=== PATIENT | male | born 1995 | race Caucasian/White ===

== ENCOUNTER 2017-06-08 20:29 | Emergency (ER) | payer SELFPAY ==
[~2017-06-08] VITALS: Ht 180.3 cm; Wt 74.4 kg
--- NOTE | 2017-06-08 21:41 | ED General ---
General Chief Complaint: Laceration Stated Complaint: RT ARM LACERATIONS Nursing Triage Note: PT REPORTS HIS R HAND WENT THROUGH A GLASS TOP TABLE AND HAS LAC TO R WRIST. Nursing Sepsis Screen: No Definite Risk Source of Information: Patient Exam Limitations: No Limitations History of Present Illness Time Seen by Provider: 21:41 Allergies and Home Medications Allergies Coded Allergies: No Known Drug Allergies (Unverified , 02/01/13) Home Medications No Active Prescriptions or Reported Meds Past Iojmrod-Vmfdhy-Ecckpz Hx Patient Social History Alcohol Use: Denies Use Recreational Drug Use: Yes Drug of Choice: MARIJUANA Smoking Status: Current Everyday Smoker Type Used: Cigarettes Recent Foreign Travel: No Contact w/Someone Who Travel: No Recent Infectious Disease Expo: No Immunizations Up To Date Tetanus Booster (TDap): Less than 5yrs Date of Influenza Vaccine: Sep 15, 2012 Surgeries HX Surgeries: Yes (TESTICULAR HERNIA) Respiratory Hx Respiratory Disorders: No Cardiovascular Hx Cardiac Disorders: No Neurological Hx Neurological Disorders: No Reproductive System Hx Reproductive Disorders: No Musculoskeletal Hx Musculoskeletal Disorders: Yes (SPINAL STENOSIS) Physical Exam Vital Signs Vital Sign - Last 12Hours 06/08/17 20:47 Temp 98.5 Pulse 78 Resp 18 B/P (MAP) 113/67 Pulse Ox 100 O2 Delivery Room Air Capillary Refill : Less Than 3 Seconds Progress/Results/Core Measures Results/Orders My Orders Orders - ROBER NESS Lidocaine/Epi 1% 1:100,000 (Xylocaine /E (06/08/17 21:43) Hydrocodone/Apap 5/325 Tablet (Lortab 5 (06/08/17 21:43) Lidocaine 1% Injection (Xylocaine 1% Inj (06/08/17 21:44) Vital Signs/I&O Vital Sign - Last 12Hours 06/08/17 20:47 Temp 98.5 Pulse 78 Resp 18 B/P (MAP) 113/67 Pulse Ox 100 O2 Delivery Room Air Blood Pressure Mean: 82 Departure Impression Impression: Primary Impression: Laceration of forearm, right Qualified Codes: S51.811A - Laceration without foreign body of right forearm, initial encounter Disposition: 01 HOME, SELF-CARE Condition: Improved Departure-Patient Inst. Decision time for Depature: 22:30 Referrals: NO,LOCAL PHYSICIAN (PCP/Family) Primary Care Physician Patient Instructions: Laceration Repair With Stitches (DC) Add. Discharge Instructions: All discharge instructions reviewed with patient and/or family. Voiced understanding. Tylenol extra strength over the counter as directed for pain. Motrin 800 mg by mouth every 8 hours as needed for pain. Ice pack for 20 minute intervals as needed for pain. Elevate the right forearm on pillows. Tomorrow morning remove the bandage, shower with antibacterial soap, pat dry, apply triple embark ointment twice daily for 3 days and cover with a bandage. Follow-up with your family practitioner if needed. Return to the emergency department in 7-10 days for suture removal. Return to the emergency department immediately for worsened pain, redness, drainage, fever, or any other concerns. Scripts No Active Prescriptions or Reported Meds Work/School Note: Local Medical Staff Listing ROBER NESS Jun 08, 2017 21:41
[2017-06-08] MEDS ORDERED: HYDROcodone/APAP 5 MG/325 MG (LORTAB) TAB PO STA (21:43)
[2017-06-08] MEDS ORDERED: LIDOCAINE/EPI 1%-1:100,000 (XYLOCAINE) 20ML INJ STA (21:43)
[2017-06-08] MEDS ORDERED: LIDOCAINE 1% INJ 20 ML (XYLOCAINE) VIAL INJ STA (21:44)
[2017-06-08 23:17] VITALS: BP 0/0
== END 2017-06-08 23:17 | disposition home or self-care (01) ==
LOC: EDUNIT# 20:29 → ER 20:32
DX: S51.811A Laceration without foreign body of right forearm, initial encounter (principal); M48.00 Spinal stenosis, site unspecified; F17.210 Nicotine dependence, cigarettes, uncomplicated; F12.90 Cannabis use, unspecified, uncomplicated; W25.XXXA Contact with sharp glass, initial encounter

== ENCOUNTER → 2017-11-26 | Emergency (ER) | payer SELFPAY ==
[~2017-11-26] VITALS: Ht 180.3 cm; Wt 74.8 kg
--- OUTSIDE RECORDS SUMMARY | 2017-11-26 13:49 | XMS REPORT | Continuity of Care Document ---
Author Author [facility] of [facility] of [facility] Address Unknown Phone Unavailable Allergies Active Description Code Type Severity Reaction Onset Reported/Identified Relationship to Patient Clinical Status Yes No Known Drug Allergies [id number] Drug Allergy Unknown N/A 02/01/2013 Medications There is no data. Problems Date Dx Coded Attending Type Code Diagnosis Diagnosed By 09/09/2010 ELIZABETH CANTRELL APRN 564.00 CONSTIPATION 09/09/2010 ELIZABETH CANTRELL APRN 724.5 BACKACHE UNSPECIFIED 02/01/2013 ELIZABETH CANTRELL APRN 550.90 UNILATERAL OR UNSPECIFIED INGUINAL HERNIA WITHOUT OBSTRUCTION OR GANGRENE 02/01/2013 ELIZABETH CANTRELL APRN 608.9 UNSPECIFIED DISORDER OF MALE GENITAL ORGANS 02/01/2013 Ot 604.90 ORCHITIS/ EPIDIDYMIT NOS 02/01/2013 Ot 608.9 MALE GENITAL DIS NOS Procedures Code [place] [address] UA LONG DIP 02/01/2013 00747 GC/CHLAM URINE (STATE) 02/03/2013 Results There is no data. Encounters ACCT No. Visit Date/Time Discharge Status Pt. Type Provider Facility Loc./Unit Complaint [id number] 02/01/2013 10:39:00 02/01/2013 23:59:59 CLS Outpatient ELIZABETH CANTRELL APRN [id number] 06/08/2017 20:32:00 06/08/2017 23:17:00 DIS Emergency ROBER OLVERA Via [facility] ER RT ARM LACERATION [id number] 11/22/2013 17:54:00 11/22/2013 23:59:59 CLS Outpatient [id number] 02/01/2013 12:11:00 Document Registration
--- OUTSIDE RECORDS SUMMARY | 2017-11-26 13:49 | XMS REPORT ---
Author Author LORENZO JASMINE Organization [employer] Address Unknown Phone Unavailable Care Team Providers Care Compounding Technician Name Role Phone LORENZO JASMINE CP Unavailable Allergies No Known Allergies Problems Problem Type Condition ICD-9 Code Onset Dates Condition Status Problem Inguinal hernia without mention of obstruction or gangrene, unilateral or unspecified, (not specified as recurrent) 550.90 Active Assessment Dental examination V72.2 Active Problem Unspecified disorder of male genital organs 608.9 Active Medications No Known Medications Procedures Procedure Coding System Code Date INTRAORL-PERIAPICAL 1 FILM 48897 CPT-4 D0220 Jul 17, 2015 INTRAORL-PERIAPICAL EA ADD FILM CPT-4 D0230 Jul 17, 2015 LTD ORAL EVALUATION - PROBLEM FOCUS CPT-4 D0140 Jul 17, 2015 EXTRAC ERUPTED TOOTH/EXPOSED ROOT CPT-4 D7140 Jul 17, 2015 Results No Known Results Summary Purpose [employer] Submission
--- OUTSIDE RECORDS SUMMARY | 2017-11-26 13:49 | XMS REPORT | Clinical Summary ---
Author Author [facility] Organization [facility] Address Unknown Phone Unavailable Care Team Providers Care Recreation Therapy Teacher Name Role Phone PCP Unavailable Source Comments Some departments are not documenting in the electronic medical record. If you do not see the information that you expected, contact Release of Information in the Health Information Management department at [phone] for further assistance in locating additional records.[facility] Allergies Not on File Current Medications Not on file Active Problems Not on file Social History Tobacco Use Types Packs/Day Years Used Date Never Assessed Sex Assigned at Date Recorded Not on file Last Filed Vital Signs Not on file Plan of Treatment Health Maintenance Due Date Last Done Comments PHYSICAL (COMPREHENSIVE) 2002 EXAM PERTUSSIS VACCINE 2006 TETANUS VACCINE 02/07/2012 INFLUENZA VACCINE 06/15/2017 HPV VACCINES Aged Out No longer eligible based on patient's age to complete this topic Results Not on filefrom Last 3 Months
[2017-11-26 14:18] VITALS: BP 150/82
== END | disposition left against medical advice (07) ==
LOC: EDUNIT# 13:44 → ER 13:46
DX: K08.89 Other specified disorders of teeth and supporting structures (principal)
CPT/HCPCS: 99281

== ENCOUNTER 2017-12-05 18:16 | Emergency (ER) | payer SELFPAY ==
[~2017-12-05] VITALS: Ht 180.3 cm; Wt 74.8 kg
--- NOTE | 2017-12-05 18:28 | ED Cough/URI ---
General Stated Complaint: COUGH/FEVER Source: patient Exam Limitations: no limitations History of Present Illness Date Seen by Provider: Dec 05, 2017 Time Seen by Provider: 18:28 Initial Comments To ER, advised girlfriend with a cough present for 2 weeks but he has been unable to quit coughing constantly for the past hour. No fevers. No chills no sore throat. Girlfriend tested positive for influenza last week she states. Timing/Duration: constant Severity/Quality: dry cough Associated Symptoms: cough Allergies and Home Medications Allergies Coded Allergies: No Known Drug Allergies (Unverified , 02/01/13) Home Medications No Active Prescriptions or Reported Meds Constitutional: see HPI EENTM: see HPI Respiratory: see HPI, cough Cardiovascular: no symptoms reported Genitourinary: no symptoms reported Musculoskeletal: no symptoms reported Skin: no symptoms reported Psychiatric/Neurological: No Symptoms Reported Hematologic/Lymphatic: No Symptoms Reported Past Xtgsukh-Fsuwnt-Bavoyv Hx Patient Social History Drug of Choice: MARIJUANA Type Used: Cigarettes 2nd Hand Smoke Exposure: Yes Recent Foreign Travel: No Contact w/Someone Who Travel: No Recent Hopitalizations: No Immunizations Up To Date Tetanus Booster (TDap): Less than 5yrs Date of Influenza Vaccine: Sep 15, 2012 Surgeries History of Surgeries: Yes (TESTICULAR HERNIA) Respiratory History of Respiratory Disorde: No Cardiovascular History of Cardiac Disorders: No Neurological History of Neurological Disord: No Reproductive System Hx Reproductive Disorders: No Genitourinary History of Genitourinary Disor: No Gastrointestinal History of Gastrointestinal Di: No Musculoskeletal History of Musculoskeletal Dis: Yes (SPINAL STENOSIS) Musculoskeletal Disorders: Chronic Back Pain Endocrine History of Endocrine Disorders: No HEENT History of HEENT Disorders: No Cancer History of Cancer: No Psychosocial History of Psychiatric Problem: No Integumentary History of Skin or Integumenta: No Blood Transfusions History of Blood Disorders: No Family Medical History Significant Family History: No Pertinent Family Hx Physical Exam Vital Signs Vital Sign - Last 12Hours 12/05/17 18:21 Temp 98.7 Pulse 107 Resp 18 B/P (MAP) 136/72 (93) Capillary Refill : General Appearance: WD/WN, no apparent distress Eyes: Bilateral Eye Normal Inspection, Bilateral Eye PERRL, Bilateral Eye EOMI HEENT: PERRL/EOMI, normal ENT inspection Neck: non-tender, full range of motion Respiratory: normal breath sounds, no respiratory distress, no accessory muscle use Cardiovascular: regular rate, rhythm, no murmur Gastrointestinal: normal bowel sounds, non tender, soft Neurologic/Psychiatric: alert, normal mood/affect, oriented x 3 Skin: normal color, warm/dry Progress/Results/Core Measures Suspected Sepsis SIRS Temperature: Pulse: Respiratory Rate: Blood Pressure / Mean: Results/Orders Micro Results Microbiology 12/05/17 Influenza Types A,B Antigen (TY) - Final, Complete My Orders Orders - ANDRE YIP APRN Chest Pa/Lat (2 View) (12/05/17 18:26) Influenza A And B Antigens (12/05/17 18:26) Promethazine/ Codeine Syrup (Phenergan W (12/05/17 18:30) Medications Given in ED Current Medications Medications Dose Ordered Sig/Cleo Route Start Time Stop Time Status Last Admin Dose Admin Promethazine HCl/ Codeine 7.5 ml ONCE ONCE PO 12/05/17 18:30 12/05/17 18:31 DC 12/05/17 18:37 7.5 ML Vital Signs/I&O Vital Sign - Last 12Hours 12/05/17 18:21 Temp 98.7 Pulse 107 Resp 18 B/P (MAP) 136/72 (93) Capillary Refill : Departure Impression Impression: Primary Impression: Bronchitis Disposition: 01 HOME, SELF-CARE Condition: Stable Departure-Patient Inst. Decision time for Depature: 18:55 Referrals: NO,LOCAL PHYSICIAN (PCP/Family) Primary Care Physician Patient Instructions: Acute Bronchitis, Adult (DC) Add. Discharge Instructions: 1. Return to ER for any concerns 2. Cough medication and antibiotics as directed 3. Scripts Promethazine HCl/Codeine (Prometh-Codein 6.25-10 mg/5 ml) 5 Ml Syrup 5 ML PO Q6H Y for CONGESTION, #120 ML Prov: ANDRE YIP APRN 12/05/17 Azithromycin (Azithromycin) 250 Mg Tablet 250 MG PO UD, #6 TAB TAKE 2 TABLETS ON DAY ONE THEN TAKE 1 TABLET DAILY FOR FOUR MORE DAYS Prov: ANDRE YIP APRN 12/05/17 Work/School Note: Work Release Form Date Seen in the Emergency Department: Dec 05, 2017 Return to Work: Dec 08, 2017 ANDRE YIP APRN Dec 05, 2017 18:28
[2017-12-05] MEDS ORDERED: PROMETHAZINE/ CODEINE SYRUP 5 ML UDC PO ONE (18:30)
--- NOTE | 2017-12-05 18:48 | Diagnostic Imaging Report ---
CHEST PA/LAT (2 VIEW) Indication: Cough and chest tightness Comparison: None available. Findings: No focal pneumonic consolidation, pleural effusion or pneumothorax. Normal heart size and pulmonary vasculature. Impression: No acute cardiopulmonary process. Dictated by: Dictated on workstation # [id number]
[2017-12-05] MEDS ORDERED: AZIT250T12 PO (18:56)
[2017-12-05] MEDS ORDERED: PROM5SYR PO (18:56)
[2017-12-05 19:04] VITALS: BP 136/72
== END 2017-12-05 19:04 | disposition home or self-care (01) ==
LOC: EDUNIT# 18:16 → ER 18:17
DX: J40 Bronchitis, not specified as acute or chronic (principal); F12.10 Cannabis abuse, uncomplicated; Z77.22 Contact with and (suspected) exposure to environmental tobacco smoke (acute) (chronic)
CPT/HCPCS: 71046; 87804; 99283

== ENCOUNTER 2018-06-18 01:32 | Emergency (ER) | payer SELFPAY ==
[~2018-06-18] VITALS: Ht 177.8 cm; Wt 73.5 kg
[~2018-06-18 01:32] MED LIST: AZIT250T12 PO; PROM5SYR PO
[2018-06-18] MEDS ORDERED: TRIM/SULFAMETH 160/800 (SEPTRA DS) TAB PO ONE (01:45)
[2018-06-18] MEDS ORDERED: TETANUS,DIPTH,PERTUSS P/F (BOOSTRIX) 0.5 ML VIAL IM ONE (01:45)
--- NOTE | 2018-06-18 01:58 | ED Integumentary General ---
General Stated Complaint: RT HAND HURTS-POSS INFECTION Source: patient Exam Limitations: no limitations History of Present Illness Date Seen by Provider: Jun 18, 2018 Time Seen by Provider: 01:38 Initial Comments Patient presents to ER by private conveyance with chief complaint is having some swelling and pain in his first digit of the right hand. One or 2 days ago he said he was messing with some copper wiring a burn been and he cut himself on that thumb and since then his had a lot of pain and swelling progressively worse. He's had no fevers chills nausea vomiting or weakness. He has feeling in his hand and fingers. His range of motion is only mildly limited secondary to pain. He's noticed some greenish yellow discharge from the wound. Allergies and Home Medications Allergies Coded Allergies: No Known Drug Allergies (Unverified , 02/01/13) Home Medications Azithromycin 250 Mg Tablet, 250 MG PO UD TAKE 2 TABLETS ON DAY ONE THEN TAKE 1 TABLET DAILY FOR FOUR MORE DAYS Prescribed by: ANDRE YIP on 12/05/171855 Promethazine HCl/Codeine 5 Ml Syrup, 5 ML PO Q6H PRN for CONGESTION Prescribed by: ANDRE YIP on 12/05/171855 Sulfamethoxazole/Trimethoprim 1 Each Tablet, 1 EACH PO BID Prescribed by: JAY ADDISON on 06/18/18 0159 Patient Home Medication List Home Medication List Reviewed: Yes Constitutional: No chills, No diaphoresis, No fever EENTM: No ear discharge, No ear pain Respiratory: No cough, No short of breath Cardiovascular: No chest pain, No edema Gastrointestinal: No abdominal pain, No constipation, No diarrhea Genitourinary: No dysuria Musculoskeletal: No back pain, No joint pain Skin: see HPI Past Gqomygw-Pretix-Ukaylh Hx Patient Social History Alcohol Use: Denies Use Recreational Drug Use: Yes Drug of Choice: MARIJUANA Smoking Status: Current Everyday Smoker Type Used: Cigarettes 2nd Hand Smoke Exposure: No Recent Foreign Travel: No Contact w/Someone Who Travel: No Recent Hopitalizations: No Immunizations Up To Date Tetanus Booster (TDap): Less than 5yrs Date of Influenza Vaccine: Sep 15, 2012 Past Medical History Surgeries: Yes (TESTICULAR HERNIA) Respiratory: No Cardiac: No Neurological: No Reproductive Disorders: No Genitourinary: No Gastrointestinal: No Musculoskeletal: Yes (SPINAL STENOSIS) Chronic Back Pain Endocrine: No HEENT: No Cancer: No Psychosocial: No Integumentary: No Blood Disorders: No Family Medical History No Pertinent Family Hx Physical Exam Vital Signs Vital Signs - First Documented 06/18/18 01:41 Temp 97.7 Pulse 93 Resp 19 B/P (MAP) 125/90 (102) Pulse Ox 99 O2 Delivery Room Air Capillary Refill : General Appearance: no apparent distress, other (disheveled) HEENT: PERRL/EOMI, pharynx normal Cardiovascular: normal peripheral pulses, regular rate, rhythm Respiratory: no respiratory distress, no accessory muscle use Neurologic/Psychiatric: alert, normal mood/affect, oriented x 3 Skin: other (taut, tender, erythematous pad of the first digit right hand with area of fluctuance under the approximated, dry 1 cm laceration) Procedures/Interventions I&D : Site: right thumb pad not involving nail Blade Size: 11 I & D Procedure: betadine prep (chlorhexidine soap water and alcohol) Progress Right thumb was prepared with 6 cc lidocaine in a digital block after cleaning the hand with soap and water and then alcohol and chlorhexidine. When the wound was ascertained to be numb we use an 11 blade to make a cross mane incision utilizing the previous wound and expressed about 2-3 cc of thick mucopurulent discharge with foul odor the wound was then cleaned thoroughly with chlorhexidine soap water and a light gauze dressing was placed.. Progress/Results/Core Measures Results/Orders My Orders Orders - AJY ADDISON Sulfamethoxazole/Trimet Ds Tab (Bactrim (06/18/18 01:45) Dipht,Pertuss(Acell),Tet Adult (Boostrix (06/18/18 01:45) Lidocaine 1% Inj 20 Ml (Xylocaine 1% Inj (06/18/18 02:00) Acetaminophen Tablet (Tylenol Tablet) (06/18/18 02:30) Medications Given in ED Current Medications Medications Dose Ordered Sig/Cleo Route Start Time Stop Time Status Last Admin Dose Admin Diphtheria/ Tetanus/Acell Pertussis 0.5 ml ONCE ONCE IM 06/18/18 01:45 06/18/18 01:46 DC 06/18/18 02:01 0.5 ML Lidocaine HCl 20 ml ONCE ONCE INJ 06/18/18 02:00 06/18/18 02:01 DC 06/18/18 02:02 20 ML Trimethoprim/ Sulfamethoxazole 1 ea ONCE ONCE PO 06/18/18 01:45 06/18/18 01:46 DC 06/18/18 01:57 1 EA Vital Signs/I&O 06/18/18 01:41 Temp 97.7 Pulse 93 Resp 19 B/P (MAP) 125/90 (102) Pulse Ox 99 O2 Delivery Room Air Progress Progress Note : Time: 02:27 Progress Note We gave him a dose of Bactrim tonight we'll have him follow-up with his doctor Wednesday or Wednesday. Tetanus shot was given. Gave him some Tylenol for his pain in addition to Motrin he's been taking. Departure Impression Primary Impression: Abscess of thumb, right Disposition: HOME, SELF-CARE Condition: Stable Departure-Patient Inst. Decision time for Depature: 02:28 Referrals: EVERTON FREY DO (PCP/Family) Primary Care Physician Patient Instructions: ABSCESS Add. Discharge Instructions: Keep the wound clean with regular soap and water. Allowed to drain over the next couple days and do not submerse it and water for 3 days. Take the antibiotics 1 tablet twice a day by mouth. Follow-up with your primary care provider in the next 2-3 days for reevaluation of the thumb. Return to the ER to begin to have fevers or chills or nausea and vomiting. Keep the finger clean with soap and water several times a day and you can wear a light gauze dressing to keep dirt out. If you have pain then use ibuprofen 400 mg every 8 hours and/ or Tylenol 1000 mg every 8 hours. Scripts Sulfamethoxazole/Trimethoprim (Bactrim Ds Tablet) 1 Each Tablet 1 EACH PO BID for 5 Days, #10 TAB 0 Refills Prov: JAY ADDISON 06/18/18 Copy Copies To 1: EVERTON FREY TITUS J Jun 18, 2018 01:58
[2018-06-18] MEDS ORDERED: SULF1TAB35 PO (01:59)
[2018-06-18] MEDS ORDERED: LIDOCAINE 1% INJ 20 ML 20 ML VIAL INJ ONE (02:00)
[2018-06-18] MEDS ORDERED: ACETAMINOPHEN 500 MG TAB (TYLENOL) PO ONE (02:30)
[2018-06-18 02:35] VITALS: BP 125/90
--- OUTSIDE RECORDS SUMMARY | 2018-06-18 12:06 | XMS REPORT ---
Author Author JESSICA DYLAN [facility] Address Unknown Care Team Providers Care Plating Equipment Tender Name Role Phone DYLAN LOPEZ Unavailable PROBLEMS Type Condition ICD9-CM Code [id number] Code Onset Dates Condition Status SNOMED Code Problem Unspecified disorder of male genital organs 608.9 Active 50940821 Problem Inguinal hernia without mention of obstruction or gangrene, unilateral or unspecified, (not specified as recurrent) 550.90 Active [id number] ALLERGIES No Known Allergies ENCOUNTERS Encounter Location Date Diagnosis [facility] [id number] [place] [id number] Jan, Dental examination Z01.20 [facility] [id number] [place] [id number] Jul, Dental examination V72.2 [facility] [address] [id number] Feb, [facility] [id number] [place] [id number] Jan, [facility] [id number] [place], [place] [phone] Aug, [facility] [address] [phone] Aug, IMMUNIZATIONS No Known Immunizations SOCIAL HISTORY Never Assessed REASON FOR VISIT WALK IN PAIN PLAN OF CARE Activity Details Follow Up prn Reason:EXT # 11 VITAL SIGNS Height 68 in 2018-01-20 Blood pressure systolic 98 mmHg 2018-01-20 Blood pressure diastolic 64 mmHg 2018-01-20 MEDICATIONS Medication Instructions Dosage Frequency Start Date End Date Duration Status Amoxicillin 500 MG Orally every 8 hrs 1 capsule 8h 7 days Active RESULTS No Results PROCEDURES Procedure Date Ordered Result Body Site LTD ORAL EVALUATION - PROBLEM FOCUS January 20, 2018 INTRAORL-PERIAPICAL 1 FILM 76587 January 20, 2018 INSTRUCTIONS MEDICATIONS ADMINISTERED No Known Medications MEDICAL (GENERAL) HISTORY Type Description Date Medical History Back Trouble
--- OUTSIDE RECORDS SUMMARY | 2018-06-18 12:06 | XMS REPORT | Clinical Summary ---
Author Author [facility] Organization [facility] Address Unknown Phone Unavailable Care Team Providers Care Apprentice Plant Attendant Name Role Phone KiraJohnny santos PCP Source Comments Some departments are not documenting in the electronic medical record. If you do not see the information that you expected, contact Release of Information in the Health Information Management department at [phone] for further assistance in locating additional records.[facility] Allergies Not on File Current Medications Not on file Active Problems Not on file Social History Tobacco Use Types Packs/Day Years Used Date Never Assessed Sex Assigned at Date Recorded Not on file Last Filed Vital Signs Not on file Plan of Treatment Health Maintenance Due Date Last Done Comments PHYSICAL (COMPREHENSIVE) 2002 EXAM PERTUSSIS VACCINE 2006 HIV SCREENING 2010 TETANUS VACCINE 02/07/2012 INFLUENZA VACCINE 08/15/2018 Results Not on filefrom Last 3 Months
--- OUTSIDE RECORDS SUMMARY | 2018-06-18 12:06 | XMS REPORT | Continuity of Care Document ---
Author Author [facility] of [facility] Address Unknown Phone Unavailable Allergies Active Description Code Type Severity Reaction Onset Reported/Identified Relationship to Patient Clinical Status Yes No Known Drug Allergies [id number] Drug Allergy Unknown N/A 02/01/2013 Medications There [...] 02/01/2013 Ot 608.9 MALE GENITAL DIS NOS 06/08/2017 ROBER OLVERA Ot F12.90 CANNABIS USE, UNSPECIFIED, UNCOMPLICATED 06/08/2017 ROBER OLVERA Ot F17.210 NICOTINE DEPENDENCE, CIGARETTES, UNCOMPL 06/08/2017 ROBER OLVERA Ot M48.00 SPINAL STENOSIS, SITE UNSPECIFIED 06/08/2017 ROBER OLVERA Ot S51.811A LACERATION W/O FOREIGN BODY OF RIGHT FOR 06/08/2017 ROBER OLVERA Ot S61.411A LACERATION WITHOUT FOREIGN BODY OF RIGHT 06/08/2017 ROBER OLVERA Ot W25.XXXA CONTACT WITH SHARP GLASS, INITIAL ENCOUN 11/30/2017 ROBER OLVERA Ot K08.89 OTHER SPECIFIED DISORDERS OF TEETH AND S 12/01/2017 ROBER OLVERA Ot K08.89 OTHER SPECIFIED DISORDERS OF TEETH AND S 12/05/2017 ROBER OLVERA Ot K08.89 OTHER SPECIFIED DISORDERS OF TEETH AND S 12/05/2017 ANDRE YIP APRN Ot F12.10 CANNABIS ABUSE, UNCOMPLICATED 12/05/2017 ANDRE YIP APRN Ot J40 BRONCHITIS, NOT SPECIFIED ACUTE OR CH 12/05/2017 ANDRE YIP APRN Ot R05 COUGH 12/05/2017 ANDRE YIP APRN Ot Z77.22 CNTCT W AND EXPSR TO ENVIRON TOBACCO SMO 12/07/2017 ANDRE YIP APRN Ot F12.10 CANNABIS ABUSE, UNCOMPLICATED 12/07/2017 ANDRE YIP APRN Ot J40 BRONCHITIS, NOT SPECIFIED ACUTE OR CH 12/07/2017 ANDRE YIP APRN Ot R05 COUGH 12/07/2017 ANDRE YIP APRN Ot Z77.22 CNTCT W AND EXPSR TO ENVIRON TOBACCO SMO 12/11/2017 ANDRE YIP APRN Ot F12.10 CANNABIS ABUSE, UNCOMPLICATED 12/11/2017 ANDRE YIP APRN Ot J40 BRONCHITIS, NOT SPECIFIED ACUTE OR CH 12/11/2017 ANDRE YIP APRN Ot R05 COUGH 12/11/2017 ANDRE YIP APRN Ot Z77.22 CNTCT W AND EXPSR TO ENVIRON TOBACCO SMO 01/11/2018 ROBER OLVERA Ot K08.89 OTHER SPECIFIED DISORDERS OF TEETH AND S Procedures Code [place] [address] UA LONG DIP 02/01/2013 29038 GC/CHLAM URINE (STATE) 02/03/2013 Results Test Result Range Influenza virus A and B antigen detection - 12/05/17 18:27 FLU RESULT NEGATIVE FOR INFLUENZA A AND B ANTIGENS BY IA NRG Encounters ACCT No. Visit Date/Time Discharge Status Pt. Type Provider Facility Loc./Unit Complaint [id number] 02/01/2013 10:39:00 02/01/2013 23:59:59 CLS Outpatient ELIZABETH CANTRELL APRN [id number] 01/20/2018 09:30:00 01/20/2018 23:59:59 CLS Outpatient JAVIER DOAN LAC [facility] [id number] 12/05/2017 18:17:00 12/05/2017 19:04:00 DIS Emergency ANDRE YIP APRN Via [facility] ER COUGH/FEVER [id number] 11/26/2017 13:46:00 11/26/2017 18:22:00 DIS Emergency ROBER OLVERA Via [facility] ER TOOTHACHE [id number] 06/08/2017 20:32:00 06/08/2017 23:17:00 DIS Emergency THI WHEELER, ROBER Larose Via [facility] ER RT ARM LACERATION [id number] 11/22/2013 17:54:00 11/22/2013 23:59:59 CLS Outpatient [id number] 02/01/2013 12:11:00 Document Registration
== END 2018-06-18 02:35 | disposition home or self-care (01) ==
LOC: EDUNIT# 01:32 → ER 01:36
DX: L03.011 Cellulitis of right finger (principal); F12.10 Cannabis abuse, uncomplicated; F17.210 Nicotine dependence, cigarettes, uncomplicated; Z87.448 Personal history of other diseases of urinary system; Z23 Encounter for immunization
CPT/HCPCS: 90471; 90715

== ENCOUNTER 2019-05-21 15:19 | Emergency (ER) | payer SELFPAY ==
[~2019-05-21] VITALS: Ht 177.8 cm; Wt 72.6 kg
[~2019-05-21 15:19] MED LIST changes: +SULF1TAB35 PO
--- NOTE | 2019-05-21 16:19 | ED Integumentary General ---
General Chief Complaint: Upper Extremity Stated Complaint: RT HAND PAIN Nursing Triage Note: Right hand pain. Pt cut hand on barbed wire last week. Pt tried to ruben the wound himself last night. Pain up to the elbow. Source: patient Exam Limitations: no limitations History of Present Illness Date Seen by Provider: May 21, 2019 Time Seen by Provider: 16:04 Initial Comments 24-year-old male patient presents to the emergency department with complaints of right thumb infection. Patient reports cutting his hand on bar wire last week. Reports progressively worsening redness, swelling, and pain. He attempted to ruben the right thumb with a razor blade at home. He denies drainage. Timing/Duration: week, getting worse Location: hands (rt hand) Possible Cause: other (punture from barbed wire) Modifying Factors: worse with other (worse with palpation or movement) Allergies and Home Medications Allergies Coded Allergies: No Known Drug Allergies (Unverified , 02/01/13) Home Medications Azithromycin 250 Mg Tablet, 250 MG PO UD TAKE 2 TABLETS ON DAY ONE THEN TAKE 1 TABLET DAILY FOR FOUR MORE DAYS Prescribed by: ANDRE YIP on 12/05/17 185 Promethazine HCl/Codeine 5 Ml Syrup, 5 ML PO Q6H PRN for CONGESTION Prescribed by: ANDRE YIP on 12/05/17 185 Sulfamethoxazole/Trimethoprim 1 Each Tablet, 1 EACH PO BID Prescribed by: JAY ADDISON on 06/18/18 0159 Patient Home Medication List Home Medication List Reviewed: Yes Review of Systems Review of Systems Constitutional: No chills, No fever, No malaise Respiratory: no symptoms reported Cardiovascular: no symptoms reported Musculoskeletal: see HPI Skin: see HPI Psychiatric/Neurological: No Symptoms Reported All Other Systems Reviewed Negative Unless Noted: Yes (Negative excepted noted.) Past Euhvwrs-Lumfyb-Vddnww Hx Past Med/Social Hx: Reviewed Nursing Past Med/Soc Hx Patient Social History Alcohol Use: Occasionally Uses Recreational Drug Use: No Drug of Choice: MARIJUANA Smoking Status: Current Everyday Smoker Type Used: Cigarettes 2nd Hand Smoke Exposure: No Recent Foreign Travel: No Contact w/Someone Who Travel: No Recent Infectious Disease Expo: No Recent Hopitalizations: No Immunizations Up To Date Tetanus Booster (TDap): Less than 5yrs (June 2018) Date of Influenza Vaccine: Sep 15, 2012 Past Medical History Surgeries: Yes ("TESTICULAR HERNIA") Respiratory: No Cardiac: No Neurological: No Reproductive Disorders: No Genitourinary: No Gastrointestinal: No Musculoskeletal: Yes (SPINAL STENOSIS) Chronic Back Pain Endocrine: No HEENT: No Cancer: No Psychosocial: No Integumentary: No Blood Disorders: No Family Medical History Reviewed Nursing Family Hx No Pertinent Family Hx Physical Exam Vital Signs Vital Signs - First Documented 05/21/19 15:43 Temp 98.5 Pulse 101 Resp 15 B/P (MAP) 124/99 (107) Pulse Ox 98 O2 Delivery Room Air Capillary Refill : Less Than 3 Seconds General Appearance: WD/WN, no apparent distress Cardiovascular: normal peripheral pulses, regular rate, rhythm, no murmur Respiratory: lungs clear, normal breath sounds, no respiratory distress, no accessory muscle use Extremities: normal capillary refill, other (erythema, swelling, and tenderness to the right thumb. pt is noted to have a erythematous streaking up the anterior forearm to the distal bicep) Neurologic/Psychiatric: no motor/sensory deficits, alert, normal mood/affect, oriented x 3 Skin: normal color, warm/dry, other (erythema, swelling, and tenderness to the right thumb. pt is noted to have a erythematous streaking up the anterior forearm to the distal bicep) Skin Problem Location: upper extremities (right thumb) Skin Problem Character: abscess, erythema, swelling, tenderness, warm Procedures/Interventions I&D : Site: right thumb Blade Size: 11 I & D Procedure: betadine prep, sterile drapes applied, sterile dressing applied, gauze wick placed Packing/Drain: Idoform 11/18 Progress approximately 3 cc's of purulent drainage expressed. wound c&s obtained. blood loss minimal. pt tolerated the procedure well. Progress/Results/Core Measures Results/Orders Lab Results Laboratory Tests Test 05/21/19 16:29 Range/Units White Blood Count 12.5 H 4.3-11.0 10^3/uL Red Blood Count 4.36 4.35-5.85 10^6/uL Hemoglobin 13.2 L 13.3-17.7 G/DL Hematocrit 38 L 40-54 % Mean Corpuscular Volume 88 80-99 FL Mean Corpuscular Hemoglobin 30 25-34 PG Mean Corpuscular Hemoglobin Concent 34 32-36 G/DL Red Cell Distribution Width 13.6 10.0-14.5 % Platelet Count 201 130-400 10^3/uL Mean Platelet Volume 10.9 H 7.4-10.4 FL Neutrophils (%) (Auto) 74 42-75 % Lymphocytes (%) (Auto) 17 12-44 % Monocytes (%) (Auto) 8 0-12 % Eosinophils (%) (Auto) 1 0-10 % Basophils (%) (Auto) 0 0-10 % Neutrophils # (Auto) 9.3 H 1.8-7.8 X 10^3 Lymphocytes # (Auto) 2.2 1.0-4.0 X 10^3 Monocytes # (Auto) 1.0 0.0-1.0 X 10^3 Eosinophils # (Auto) 0.1 0.0-0.3 10^3/uL Basophils # (Auto) 0.0 0.0-0.1 10^3/uL Sodium Level 137 135-145 MMOL/L Potassium Level 3.6 3.6-5.0 MMOL/L Chloride Level 103 98-107 MMOL/L Carbon Dioxide Level 23 21-32 MMOL/L Anion Gap 11 5-14 MMOL/L Blood Urea Nitrogen 7 7-18 MG/DL Creatinine 0.82 0.60-1.30 MG/DL Estimat Glomerular Filtration Rate > 60 BUN/Creatinine Ratio 9 Glucose Level 79 70-105 MG/DL Calcium Level 9.2 8.5-10.1 MG/DL Corrected Calcium 9.1 8.5-10.1 MG/DL Total Bilirubin 0.7 0.1-1.0 MG/DL Aspartate Amino Transf (AST/SGOT) 12 5-34 U/L Alanine Aminotransferase (ALT/SGPT) 12 0-55 U/L Alkaline Phosphatase 59 40-136 U/L Total Protein 6.8 6.4-8.2 GM/DL Albumin 4.1 3.2-4.5 GM/DL My Orders Orders - ROBER NESS Cbc With Automated Diff (05/21/19 16:14) Comprehensive Metabolic Panel (05/21/19 16:14) Ibuprofen Tablet (Motrin Tablet) (05/21/19 16:14) Ed Iv/Invasive Line Start (05/21/19 16:21) Lidocaine 1% Inj 20 Ml (Xylocaine 1% Inj (05/21/19 17:00) Wound Culture (05/21/19 16:57) Sulfamethoxazole/Trimet Ds Tab (Bactrim (05/21/19 16:57) Clindamycin 600 Mg/50 Ml Ivpb (Cleocin P (05/21/19 17:00) Medications Given in ED Current Medications Medications Dose Ordered Sig/Cleo Route Start Time Stop Time Status Last Admin Dose Admin Clindamycin Phosphate/Dextrose 50 ml @ 108 mls/hr ONCE ONCE IV 05/21/19 17:00 05/21/19 17:27 DC 05/21/19 17:35 108 MLS/HR Lidocaine HCl 20 ml ONCE ONCE INJ 05/21/19 17:00 05/21/19 17:04 DC 05/21/19 17:25 20 ML Vital Signs/I&O 05/21/19 15:43 Temp 98.5 Pulse 101 Resp 15 B/P (MAP) 124/99 (107) Pulse Ox 98 O2 Delivery Room Air Blood Pressure Mean: 107 Departure Impression Primary Impression: Abscess of thumb, right Disposition: 01 HOME, SELF-CARE Condition: Improved Departure-Patient Inst. Decision time for Depature: 18:00 Referrals: EVERTON FREY DO (PCP/Family) Primary Care Physician Patient Instructions: Abscess Incision and Drainage Add. Discharge Instructions: All discharge instructions reviewed with patient and/or family. Voiced understanding. Medications as instructed. Tylenol extra strength [id number] as directed for pain. Ibuprofen 800 mg by mouth every 8 hours as needed for pain. Elevate the right hand on pillows as much as possible. Follow-up with Dr. Frey tomorrow for recheck, call his office first thing tomorrow morning for appointment time. Return in the emergency department for worsened symptoms, fever, or any other concerns. Scripts Doxycycline Hyclate (Doxycycline Hyclate) 100 Mg Tablet 100 MG PO BID, #20 TAB 0 Refills Prov: ROBER NESS 05/21/19 Sulfamethoxazole/Trimethoprim (Bactrim Ds Tablet) 1 Each Tablet 1 EACH PO BID, #20 TAB 0 Refills Prov: ROBER NESS 05/21/19 ROBER NESS May 21, 2019 16:19
[2019-05-21] MEDS: IBUPROFEN 800 MG (MOTRIN) TAB PO STA (16:20)
[2019-05-21 16:35] LABS: BASOPHILS % (AUTO) 0 % (0-10); EOSINOPHILS # (AUTO) 0.1 10^3/uL (0.0-0.3); EOSINOPHILS % (AUTO) 1 % (0-10); HEMATOCRIT 38 % (40-54); HEMOGLOBIN 13.2 G/DL (13.3-17.7); LYMPHOCYTES # (AUTO) 2.2 X 10^3 (1.0-4.0); LYMPHOCYTES % (AUTO) 17 % (12-44); MEAN CORPUSCULAR HEMOGLOBIN 30 PG (25-34); MEAN CORPUSCULAR HGB CONC 34 G/DL (32-36); MEAN CORPUSCULAR VOLUME 88 FL (80-99); MEAN PLATELET VOLUME 10.9 FL (7.4-10.4); MONOCYTES % (AUTO) 8 % (0-12); NEUTROPHILS # (AUTO) 9.3 X 10^3 (1.8-7.8); NEUTROPHILS % (AUTO) 74 % (42-75); PLATELET COUNT 201 10^3/uL (130-400); RED CELL DISTRIBUTION WIDTH 13.6 % (10.0-14.5); WHITE BLOOD COUNT 12.5 10^3/uL (4.3-11.0)
[2019-05-21 16:55] LABS: ALANINE AMINOTRANSFERASE 12 U/L (0-55); ALBUMIN 4.1 GM/DL (3.2-4.5); ALKALINE PHOSPHATASE 59 U/L (40-136); BILIRUBIN,TOTAL 0.7 MG/DL (0.1-1.0); BUN/CREATININE RATIO 9; CALCIUM 9.2 MG/DL (8.5-10.1); CARBON DIOXIDE 23 MMOL/L (21-32); CHLORIDE 103 MMOL/L (98-107); CREATININE SERUM 0.82 MG/DL (0.60-1.30); GFR ESTIMATED > 60; GLUCOSE 79 MG/DL (70-105); POTASSIUM 3.6 MMOL/L (3.6-5.0); SODIUM 137 MMOL/L (135-145); TOTAL PROTEIN 6.8 GM/DL (6.4-8.2)
--- NOTE | 2019-05-21 17:10 | NUR ---
pt is sleeping soundly when RN went into room. No complaints at this time.
[2019-05-21] MEDS: TRIM/SULFAMETH 160/800 (SEPTRA DS) TAB PO STA (17:12)
[2019-05-21] MEDS: LIDOCAINE 1% INJ 20 ML 20 ML VIAL INJ ONE (17:25)
[2019-05-21] MEDS: CLINDAMYCIN 600 MG/50 ML IVPB 50 ML IV ONE (17:35)
[2019-05-21] MEDS ORDERED: SULF1TAB35 PO (18:04)
[2019-05-21] MEDS ORDERED: DOXY100T2 PO (18:04)
[2019-05-21 18:13] VITALS: BP 134/72
== END 2019-05-21 18:13 | disposition home or self-care (01) ==
LOC: EDUNIT# 15:19 → ER 15:20
DX: L02.511 Cutaneous abscess of right hand (principal); F17.210 Nicotine dependence, cigarettes, uncomplicated
CPT/HCPCS: 36415; 80053; 85025; 85027; 87070; 87077; 87186; 87205; 96374

== ENCOUNTER 2020-08-24 13:22 | Emergency (ER) | payer SELFPAY ==
[~2020-08-24] VITALS: Ht 177.8 cm; Wt 74.8 kg
[~2020-08-24 13:22] MED LIST changes: +DOXY100T2 PO
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
[2020-08-24] MEDS ORDERED: NS 100 ML (IVPB) BAG IV ONE (13:45)
[2020-08-24] MEDS ORDERED: IOHEXOL 350 MG/ML 100 ML (OMNIPAQUE 350) VIAL IV ONE (13:45)
[2020-08-24] MEDS ORDERED: HOLD METFORMIN - RECEIVED CONTRAST 20 ML VIAL IV SCH (13:45)
[2020-08-24 13:49] LABS: HEMOGLOBIN 13.3 g/dL (13.3-17.7); MEAN PLATELET VOLUME 10.9 fL (9.0-12.2)
[2020-08-24 13:55] LABS: ALBUMIN 4.1 GM/DL (3.2-4.5); CHLORIDE 108 MMOL/L (98-107); POTASSIUM 3.5 MMOL/L (3.6-5.0); SODIUM 141 MMOL/L (135-145)
[2020-08-24 13:56] LABS: CALCIUM 8.6 MG/DL (8.5-10.1)
[2020-08-24 13:58] LABS: GLUCOSE 112 MG/DL (70-105); TOTAL PROTEIN 6.8 GM/DL (6.4-8.2)
[2020-08-24 13:59] LABS: BILIRUBIN,TOTAL 0.5 MG/DL (0.1-1.0); CARBON DIOXIDE 24 MMOL/L (21-32)
[2020-08-24 14:01] LABS: ALKALINE PHOSPHATASE 51 U/L (40-136); CREATININE SERUM 1.05 MG/DL (0.60-1.30); GFR ESTIMATED > 60
[2020-08-24 14:02] LABS: BUN/CREATININE RATIO 12
[2020-08-24 14:03] LABS: BILIRUBIN,DIRECT 0.2 MG/DL (0.0-0.3); BILIRUBIN,INDIRECT 0.3 MG/DL
[2020-08-24 14:04] LABS: ALANINE AMINOTRANSFERASE 16 U/L (0-55)
--- NOTE | 2020-08-24 14:46 | Diagnostic Imaging Report ---
PROCEDURE: CT head and CT cervical spine without contrast. TECHNIQUE: Multiple contiguous axial images were obtained through the brain and cervical spine without the use of intravenous contrast. Sagittal and coronal reformations through the cervical spine were then performed. Auto Exposure Controls were utilized during the CT exam to meet ALARA standards for radiation dose reduction. INDICATION: Trauma COMPARISON: None available FINDINGS: No intracranial hemorrhage. No intracranial mass, mass effect, midline shift, herniation, hydrocephalus, or extra axial fluid collection. No definite CT evidence of an acute ischemic infarction. The globes are intact. The paranasal sinuses are clear. The calvarium is intact. Alignment of the cervical spine is well maintained. Alignment of the atlantooccipital joint is well maintained. Vertebral body heights and disc spaces are well-maintained. A 5 mm calcific density is identified associated with the right articular pillar of C6 posteriorly. This is best seen on series 606 image 27. Small defect in the articular pillar is identified at this location. The sagittal images demonstrate this to be relatively well-corticated, though the coronal images does not demonstrate decorticated margin. No additional fracture or dislocation. No destructive osseous process. No high-grade osseous central canal or neural foraminal stenosis. No apical pneumothorax. IMPRESSION: No acute intracranial abnormality. Age indeterminate tiny chip fracture arising from the right articular pillar of C6. Recommend correlation for pain at this location. If prior imaging is available for comparison, this would also be beneficial. MRI could also be obtained to evaluate for marrow edema at this location. Faxed to [facility] at 2:47 p.m. by cvb. Dictated by: Dictated on workstation # [id number]
--- NOTE | 2020-08-24 14:50 | Diagnostic Imaging Report ---
INDICATION: Elbow pain COMPARISON: None available TECHNIQUE: 3 radiographs of the right elbow dated 08/24/2020. FINDINGS: No acute fracture or dislocation. No destructive osseous process. No joint effusion. Tiny olecranon enthesophyte. IMPRESSION: No acute osseous abnormality. Dictated by: Dictated on workstation # [id number]
--- NOTE | 2020-08-24 14:52 | Diagnostic Imaging Report ---
INDICATION: Trauma COMPARISON: Imaging from the same date TECHNIQUE: Single radiograph of the pelvis dated 08/24/2020. FINDINGS: Contrast is noted within the urinary tract including the urinary bladder related to recent CT examination. No acute fracture or dislocation. No destructive osseous process. The sacroiliac joints are intact. Pubic symphysis is intact. 1.2 cm oblong sclerotic lesion noted within the left femoral neck, felt to relate to a bone island. IMPRESSION: No acute traumatic abnormality. Dictated by: Dictated on workstation # [id number]
--- NOTE | 2020-08-24 15:00 | Diagnostic Imaging Report ---
INDICATION: Trauma. COMPARISON: Imaging from the same date. TECHNIQUE: Single radiograph of the chest dated 08/24/2020. FINDINGS: The cardiac silhouette is within normal limits in size. No significant pulmonary vascular congestion. 1.8 cm nodular density is noted overlying the right upper lung. Otherwise, the lungs appear clear. No significant pleural effusion. No pneumothorax. No acute osseous abnormality. IMPRESSION: 1.8 cm nodular density overlying the right upper lung. Given indication, this may relate to focal pulmonary contusion. However, additional infiltrate or less likely neoplasm would be additional considerations. Recommend follow-up radiographs within the next 7-10 days. Dictated by: Dictated on workstation # [id number]
[2020-08-24] MEDS ORDERED: LIDOCAINE/EPI 2% 1:100,00 (XYLOCAINE) 20 ML VIAL ONE (15:08)
--- NOTE | 2020-08-24 15:08 | Diagnostic Imaging Report ---
INDICATION: Trauma, pain. COMPARISON: None available. TECHNIQUE: Four radiographs of the right tibia and fibula dated August 24, 2020. FINDINGS: Acute predominantly obliquely oriented fracture involving the mid tibial shaft is present. There is mild apex medial angulation with half shaft width lateral displacement. Mild comminution. Acute mildly comminuted transversely oriented fracture involving the mid fibular shaft is present with associated butterfly fracture fragment. There is 1 shaft width medial displacement. [place] medial angulation is also present. 1.5 cm of overriding. No additional fracture or dislocation. No suspicious radiopaque foreign body. IMPRESSION: Acute mildly displaced and angulated mid tibial and fibular shaft fractures, as described above. Dictated by: Dictated on workstation # [id number]
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
[2020-08-24] MEDS ORDERED: KETAMINE HCL 100 MG/ML 5 ML VIAL IV ONE (16:30)
[2020-08-24] MEDS ORDERED: fentaNYL INJECTION 100 MCG/2 ML AMP ONE (16:33)
[2020-08-24] MEDS ORDERED: fentaNYL INJECTION 100 MCG/2 ML AMP IVP PRN (16:45)
--- NOTE | 2020-08-24 16:50 | NUR ---
SHIFT CAPTAIN/DISPATCH CONTACTED FOR TRANSPORT.
[2020-08-24 17:25] VITALS: BP 131/78
== END 2020-08-24 17:25 | disposition short-term general hospital (02) ==
LOC: EDUNIT# 13:22 → ER 13:23
DX: S82.201A Unspecified fracture of shaft of right tibia, initial encounter for closed fracture (principal); S82.401A Unspecified fracture of shaft of right fibula, initial encounter for closed fracture; S51.011A Laceration without foreign body of right elbow, initial encounter; S27.321A Contusion of lung, unilateral, initial encounter; V49.40XA Driver injured in collision with unspecified motor vehicles in traffic accident, initial encounter
CPT/HCPCS: 70450; 71045; 71260; 72125; 72170; 73080; 73590; 74177; 80048; 80076; 85027; 93041; 99285; G0480; 36415; 80320

== ENCOUNTER 2020-09-03 18:31 | Emergency (ER) | payer SELFPAY ==
[~2020-09-03] VITALS: Ht 177.8 cm; Wt 74.8 kg
[2020-09-03] MEDS ORDERED: LACTATED RINGERS 1,000 ML IV ONE (19:07)
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
[2020-09-03 19:15] LABS: BASOPHILS # (AUTO) 0.1 10^3/uL (0.0-0.1); BASOPHILS % (AUTO) 1 % (0-10); EOSINOPHILS # (AUTO) 0.2 10^3/uL (0.0-0.3); EOSINOPHILS % (AUTO) 2 % (0-10); HEMATOCRIT 36 % (40-54); HEMOGLOBIN 11.7 g/dL (13.3-17.7); LYMPHOCYTES # (AUTO) 2.2 10^3/uL (1.0-4.0); LYMPHOCYTES % (AUTO) 26 % (12-44); MEAN CORPUSCULAR HEMOGLOBIN 30 pg (25-34); MEAN CORPUSCULAR HGB CONC 33 g/dL (32-36); MEAN CORPUSCULAR VOLUME 90 fL (80-99); MEAN PLATELET VOLUME 9.6 fL (9.0-12.2); MONOCYTES # (AUTO) 0.6 10^3/uL (0.0-1.0); MONOCYTES % (AUTO) 7 % (0-12); NEUTROPHILS # (AUTO) 5.5 10^3/uL (1.8-7.8); NEUTROPHILS % (AUTO) 64 % (42-75); PLATELET COUNT 371 10^3/uL (130-400); WHITE BLOOD COUNT 8.6 10^3/uL (4.3-11.0)
[2020-09-03 19:24] LABS: ALBUMIN 4.1 GM/DL (3.2-4.5)
[2020-09-03 19:25] LABS: CHLORIDE 100 MMOL/L (98-107); INR 0.9 (0.8-1.4); POTASSIUM 3.9 MMOL/L (3.6-5.0); PROTHROMBIN TIME PATIENT 12.9 SEC (12.2-14.7); SODIUM 137 MMOL/L (135-145)
[2020-09-03 19:26] LABS: CALCIUM 9.4 MG/DL (8.5-10.1)
[2020-09-03 19:27] LABS: GLUCOSE 93 MG/DL (70-105); TOTAL PROTEIN 7.4 GM/DL (6.4-8.2)
[2020-09-03 19:28] LABS: CARBON DIOXIDE 25 MMOL/L (21-32)
[2020-09-03 19:29] LABS: BILIRUBIN,TOTAL 0.7 MG/DL (0.1-1.0)
[2020-09-03 19:30] LABS: ALKALINE PHOSPHATASE 80 U/L (40-136)
[2020-09-03 19:32] LABS: BUN/CREATININE RATIO 18; CREATININE SERUM 0.78 MG/DL (0.60-1.30); GFR ESTIMATED > 60
[2020-09-03 19:33] LABS: ALANINE AMINOTRANSFERASE 58 U/L (0-55)
[2020-09-03] MEDS ORDERED: cefTRIAXone FOR IV USE 1,000 MG in WATER (STERILE) FOR INJECTION 10 ML IV ONE (19:45)
[2020-09-03 19:46] LABS: BILIRUBIN,URINE NEGATIVE (NEGATIVE); CLARITY,URINE CLEAR; COLOR,URINE YELLOW; GLUCOSE, URINE (UA) NEGATIVE (NEGATIVE); KETONES,URINE NEGATIVE (NEGATIVE); LEUKOCYTE ESTERASE ,URINE NEGATIVE (NEGATIVE); NITRITE,URINE NEGATIVE (NEGATIVE); PROTEIN,URINE NEGATIVE (NEGATIVE)
[2020-09-03 20:04] LABS: AMORPHOUS SEDIMENT,UR FEW AMOR URATES /LPF; BACTERIA,URINE TRACE /HPF
[2020-09-03] MEDS ORDERED: SULF1TAB35 PO (20:24)
[2020-09-03] MEDS ORDERED: TRIM/SULFAMETH 160/800 (SEPTRA DS) TAB PO ONE (20:30)
[2020-09-03 20:35] VITALS: BP 135/85
--- NOTE | 2020-09-03 20:49 | NUR ---
Outpt order faxed to registration/scheduling.
== END 2020-09-03 20:36 | disposition home or self-care (01) ==
LOC: EDUNIT# 18:31 → ER 18:33
DX: G89.18 Other acute postprocedural pain (principal); R00.0 Tachycardia, unspecified; E86.1 Hypovolemia
CPT/HCPCS: 36415; 80053; 81000; 83605; 84145; 85025; 85610; 85730; 86141; 87040; 87088

== ENCOUNTER 2021-07-15 20:43 | Emergency (ER) | payer SELFPAY ==
[~2021-07-15] VITALS: Ht 177.8 cm; Wt 62.4 kg
[~2021-07-15 20:43] MED LIST changes: -SULF1TAB35 PO; +SULF1TAB38 PO
--- NOTE | 2021-07-15 20:55 | ED Integumentary General ---
General Chief Complaint: Laceration Stated Complaint: LEFT HAND MIDDLE/RING/PINKIE LAC Source: patient Exam Limitations: no limitations (SHARDA HERBERT APRN) History of Present Illness Date Seen by Provider: Jul 15, 2021 Time Seen by Provider: 20:55 Initial Comments This is a well-appearing 26-year-old male who presents to the ER with complaints of laceration to his left little finger that occurred prior to arrival. States that he was stripping wire when the wire slipped up and cut his hand. Reports 2 other cuts to his left third and fourth finger, however states that they are not deep and has applied Band-Aids. After injury reports going inside and washing his hands thoroughly with soap and water due to working with grease material. States that his hands are constantly stained dark. Was able to stop bleeding with direct pressure with hand towel. Last tetanus last year. Location Injury Occurred: Home (SHARDA HERBERT APRN) Allergies and Home Medications Allergies Coded Allergies: No Known Drug Allergies (Unverified , 02/01/13) Home Medications Azithromycin 250 Mg Tablet, 250 MG PO UD TAKE 2 TABLETS ON DAY ONE THEN TAKE 1 TABLET DAILY FOR FOUR MORE DAYS Prescribed by: ANDRE YIP on 12/05/171855 Cephalexin 500 Mg Tablet, 500 MG PO TID Prescribed by: SHARDA HERBERT on 07/15/212129 Doxycycline Hyclate 100 Mg Tablet, 100 MG PO BID Prescribed by: ROBER NESS on 05/21/191803 Promethazine HCl/Codeine 5 Ml Syrup, 5 ML PO Q6H PRN for CONGESTION Prescribed by: ANDRE YIP on 12/05/17 185 Sulfamethoxazole/Trimethoprim 1 Each Tablet, 1 EACH PO BID Prescribed by: JAY ADDISON on 06/18/18 0159 Sulfamethoxazole/Trimethoprim 1 Each Tablet, 1 EACH PO BID Prescribed by: ROBER NESS on 05/21/191803 Sulfamethoxazole/Trimethoprim 1 Each Tablet, 1 EACH PO BID Prescribed by: DIMA VILLALTA on 09/03/202023 Patient Home Medication List Home Medication List Reviewed: Yes (SHARDA HERBERT APRN) Review of Systems Review of Systems Constitutional: no symptoms reported EENTM: no symptoms reported Respiratory: no symptoms reported Cardiovascular: no symptoms reported Gastrointestinal: no symptoms reported Musculoskeletal: no symptoms reported Skin: see HPI (SHARDA HERBERT APRN) Past Thympgt-Iqkrep-Gavfwi Hx Immunizations Up To Date Tetanus Booster (TDap): Less than 5yrs (SHARDA HERBERT APRN) Past Medical History Surgeries: Yes ("TESTICULAR HERNIA") Orthopedic Respiratory: No Cardiac: No Neurological: No Reproductive Disorders: No Genitourinary: No Gastrointestinal: No Musculoskeletal: Yes (SPINAL STENOSIS) Chronic Back Pain Endocrine: No HEENT: No Cancer: No Psychosocial: No Integumentary: No Blood Disorders: No (SHARDA HERBERT APRN) Family Medical History No Pertinent Family Hx (SHARDA HERBERT APRN) Physical Exam Vital Signs Vital Signs - First Documented 07/15/21 20:57 Temp 36.0 Pulse 88 Resp 16 B/P (MAP) 143/91 (108) Pulse Ox 99 O2 Delivery Room Air (DIMA AGUIRRE MD) Vital Signs Capillary Refill : (SHARDA HERBERT APRN) General Appearance: WD/WN, no apparent distress HEENT: PERRL/EOMI, normal ENT inspection Neck: normal inspection Cardiovascular: regular rate, rhythm, no murmur Respiratory: lungs clear, normal breath sounds Neurologic/Psychiatric: no motor/sensory deficits, alert, normal mood/affect, oriented x 3 Skin: normal color, warm/dry Skin Problem Location: other (1cm laceration to left volar 5th finger. Superfical laceration to left volar 3rd and 4th fingers) (SHARDA HERBERT APRN) Procedures/Interventions Other Wound Location Left proximal volar 5th phalanx Wound Length (cm): 1 Wound's Depth, Shape: linear, flap Wound Explored: no foreign body removed Irrigated w/ Saline (ccs): 100 Betadine Prep?: Yes Anesthesia: 1% Lidocaine Volume Anesthetic (ccs): 5 Suture: Ethlion Suture Size: 4-0 Number of Sutures: 2 Layer Closure?: 1 Progress Skin cleansed thoroughly with saline and chlorhexadine wash. Hands are stained black from grease. Applied betadine prep to webspace of left 5th phalanx. Digital block performed with 5cc Lidocaine 1%. Applied (2) sutures with 4-0 Nylon. Tolerated well. Covered with dry dressing. Glue applied to superficial skin flaps on digits 3 and 4 on left hand. Tolerated well. (SHARDA HERBERT APRN) Progress/Results/Core Measures Results/Orders Vital Signs/I&O 07/15/21 20:57 Temp 36.0 Pulse 88 Resp 16 B/P (MAP) 143/91 (108) Pulse Ox 99 O2 Delivery Room Air (DIMA AGUIRRE MD) Departure Impression Primary Impression: Laceration of left little finger Disposition: 01 HOME, SELF-CARE Condition: Improved Departure-Patient Inst. Decision time for Depature: 21:27 (SHARDA HERBERT APRN) Referrals: NO,LOCAL PHYSICIAN (PCP/Family) Primary Care Physician Patient Instructions: Laceration Repair With Stitches ED Add. Discharge Instructions: Plan: 1. Return in 10 days to have sutures removed. 2. Keep hands clean and dry. Was with mild soap and water daily and if soiled to prevent infection. Do not soak while sutures in place. 3. Keep covered if working with soiled material. 4. Take antibiotics as directed and complete full course. 5. Return to ER for any new, concerning, or worsening symptoms. All discharge instructions reviewed with patient and/or family. Voiced understanding. Scripts Cephalexin (Cephalexin) 500 Mg Tablet 500 MG PO TID for 5 Days, #15 TAB 0 Refills Prov: SHARDA HERBERT APRN 07/15/21 ATTENDING PHYSICIAN NOTE: I was physically present as attending physician in the emergency department during the care of this patient, but I was not directly involved in the decision making or delivery of care for this patient. (DIMA AGUIRRE MD) SHARDA HERBERT APRN Jul 15, 2021 20:55 DIMA AGUIRRE MD Jul 17, 2021 13:40
[2021-07-15 20:57] VITALS: BP 143/91
[2021-07-15] MEDS ORDERED: CEPH500T PO (21:30)
== END 2021-07-15 21:32 | disposition home or self-care (01) ==
LOC: EDUNIT# 20:43 → ER 20:47
DX: S61.217A Laceration without foreign body of left little finger without damage to nail, initial encounter (principal); S61.213A Laceration without foreign body of left middle finger without damage to nail, initial encounter; S61.215A Laceration without foreign body of left ring finger without damage to nail, initial encounter; W26.8XXA Contact with other sharp object(s), not elsewhere classified, initial encounter
CPT/HCPCS: 12001

== ENCOUNTER 2021-11-22 20:25 | Emergency (ER) | payer SELFPAY ==
[~2021-11-22] VITALS: Ht 180.3 cm; Wt 77.1 kg
[~2021-11-22 20:25] MED LIST changes: +CEPH500T PO
[2021-11-22] MEDS ORDERED: ceFAZolin INJECTION 1,000 MG in NS (IVPB) 50 ML IV STA (20:34)
--- NOTE | 2021-11-22 20:38 | ED Upper Extremity ---
General Stated Complaint: L HAND THUMB LAC Source: patient History of Present Illness Date Seen by Provider: Nov 22, 2021 Time Seen by Provider: 20:32 Initial Comments PT ARRIVES VIA POV FROM HOME STATES AROUND 1999 TONIGHT, HE WAS CUTTING WOOD WITH AN AXE, AND HE CUT HIS LEFT THUMB BLEEDING IS CONTROLLED ON ARRIVAL NO NUMBNESS OR TINGLING NO OTHER INJURIES FROM THE INCIDENT PT IS RIGHT HANDED NO PRIOR INJURIES TO LEFT HAND PT IS UP TO DATE ON TETANUS VACCINE 06/2021 PT HAS HAD MULTIPLE VISITS FOR INJURIES PCP: NONE--BUT HAS BEEN TO [facility] IN PAST Allergies and Home Medications Allergies Coded Allergies: No Known Drug Allergies (Unverified , 02/01/13) Patient Home Medication List Home Medication List Reviewed: Yes Azithromycin (Azithromycin) 250 Mg Tablet, 250 MG PO UD Prescribed by: ANDRE YIP on 12/05/171855 Cephalexin (Cephalexin) 500 Mg Tablet, 500 MG PO TID Prescribed by: SHARDA HERBERT on 07/15/212129 Cephalexin (Cephalexin) 500 Mg Tablet, 500 MG PO QID Prescribed by: TONY PERRIN on 11/22/212149 Doxycycline Hyclate (Doxycycline Hyclate) 100 Mg Tablet, 100 MG PO BID Prescribed by: ROBER NESS on 05/21/191803 Promethazine HCl/Codeine (Prometh-Codein 6.25-10 mg/5 ml) 5 Ml Syrup, 5 ML PO Q6H PRN for CONGESTION Prescribed by: ANDRE YIP on 12/05/17 185 Sulfamethoxazole/Trimethoprim (Bactrim Ds Tablet) 1 Each Tablet, 1 EACH PO BID Prescribed by: JAY ADDISON on 06/18/18 0159 Sulfamethoxazole/Trimethoprim (Bactrim Ds Tablet) 1 Each Tablet, 1 EACH PO BID Prescribed by: ROBER NESS on 05/21/19 180 Sulfamethoxazole/Trimethoprim (Bactrim Ds Tablet) 1 Each Tablet, 1 EACH PO BID Prescribed by: DIMA VILLALTA on 09/03/202023 Review of Systems Constitutional: no symptoms reported Musculoskeletal: see HPI Skin: see HPI Psychiatric/Neurological: Anxiety Past Ytebuud-Qqjwfc-Fintvn Hx Immunizations Up To Date Tetanus Booster (TDap): Less than 5yrs Past Medical History Surgeries: Yes ("TESTICULAR HERNIA") Orthopedic Respiratory: No Cardiac: No Neurological: No Reproductive Disorders: No Genitourinary: No Gastrointestinal: No Musculoskeletal: Yes (SPINAL STENOSIS) Chronic Back Pain Endocrine: No HEENT: No Cancer: No Psychosocial: No Integumentary: No Blood Disorders: No Family Medical History No Pertinent Family Hx Physical Exam Vital Signs Vital Signs - First Documented 11/22/21 20:29 Temp 35.4 Pulse 96 Resp 24 B/P (MAP) 130/99 (109) Pulse Ox 97 O2 Delivery Room Air Capillary Refill : Height, Weight, BMI Height: 5'10.00" Weight: 160lbs. oz. 72.674735mw; 19.00 BMI Method:Stated General Appearance: other (FILTHY, PALE, DIAPHORETIC) Hand: Left (THUMB WITH 6 CM LACERATION , GOING THROUGH EDGE OF NAIL. NO ACTIVE BLEEDING AT THIS TIME. MOTOR/SENSORY/VASCULAR INTACT. HAND IS FILTHY, AND ESSENTIALLY BLACK FROM DIRT/GRIME AND CHRONICALLY APPEARING EMBEDDED DEBRIS. NO OBVIOUS FOREIGN BODY IN THE WOUND ITSELF. ) Neurologic/Tendon: normal sensation, normal motor functions, normal tendon fu nctions Procedures/Interventions Other Wound Location LEFT THUMB Wound Length (cm): 6 Wound's Depth, Shape: irregular, flap, sub Q Wound Explored: SKIN-HEAVILY CONTAMINATED W/ CHRONIC APPEARIING GRIME.NO FB IN WOUND ITSELF Irrigated w/ Saline (ccs): 1000 Betadine Prep?: No (BETASEPT) Anesthesia: 1% Lidocaine Volume Anesthetic (ccs): 20 Suture: Ethlion Suture Size: 3-0 Number of Sutures: 9 Layer Closure?: 1 Sterile Dressing Applied?: Yes Progress WOUND IRRIGATED WITH SALINE AND BETASEPT SKIN SCRUBBED, TO REMOVE MUCH OF CHRONIC EMBEDDED DIRT/GRIME/DEBRIS POSSIBLE NAIL EDGE RE-APPROXIMATED AND SUTURED Splinting and Joint Reduction : Pre-Proc Neuro Vasc Exam: normal Post-Proc Neuro Vasc Exam: normal Splints: Thumb/Wrist Spica Progress/Results/Core Measures Results/Orders Lab Results Laboratory Tests Test 11/22/21 20:35 Range/Units White Blood Count 12.0 H 4.3-11.0 10^3/uL Red Blood Count 4.80 4.30-5.52 10^6/uL Hemoglobin 14.2 13.3-17.7 g/dL Hematocrit 43 40-54 % Mean Corpuscular Volume 89 80-99 fL Mean Corpuscular Hemoglobin 30 25-34 pg Mean Corpuscular Hemoglobin Concent 33 32-36 g/dL Red Cell Distribution Width 12.9 10.0-14.5 % Platelet Count 224 130-400 10^3/uL Mean Platelet Volume 10.1 9.0-12.2 fL Immature Granulocyte % (Auto) 0 % Neutrophils (%) (Auto) 55 42-75 % Lymphocytes (%) (Auto) 39 12-44 % Monocytes (%) (Auto) 5 0-12 % Eosinophils (%) (Auto) 1 0-10 % Basophils (%) (Auto) 0 0-10 % Neutrophils # (Auto) 6.5 1.8-7.8 10^3/uL Lymphocytes # (Auto) 4.6 H 1.0-4.0 10^3/uL Monocytes # (Auto) 0.6 0.0-1.0 10^3/uL Eosinophils # (Auto) 0.1 0.0-0.3 10^3/uL Basophils # (Auto) 0.1 0.0-0.1 10^3/uL Immature Granulocyte # (Auto) 0.0 0.0-0.1 10^3/uL Sodium Level 139 135-145 MMOL/L Potassium Level 3.6 3.6-5.0 MMOL/L Chloride Level 106 98-107 MMOL/L Carbon Dioxide Level 21 21-32 MMOL/L Anion Gap 12 5-14 MMOL/L Blood Urea Nitrogen 7 7-18 MG/DL Creatinine 1.21 0.60-1.30 MG/DL Estimat Glomerular Filtration Rate 72 BUN/Creatinine Ratio 6 Glucose Level 129 H 70-105 MG/DL Calcium Level 9.3 8.5-10.1 MG/DL My Orders Orders - TONY PERRIN DO Ed Iv/Invasive Line Start (11/22/21 20:34) Monitor-Rhythm Ecg Trace Only (11/22/21 20:34) Basic Metabolic Panel (11/22/21 20:34) Cbc With Automated Diff (11/22/21 20:34) Finger(S) (11/22/21 20:34) Ed Iv/Invasive Line Start (11/22/21 20:34) Ns Iv 1000 Ml (Sodium Chloride 0.9%) (11/22/21 20:45) Cefazolin Injection (Ancef Injection) (11/22/21 20:34) Fentanyl Inj (Sublimaze Injection) (11/22/21 20:45) Fentanyl Inj (Sublimaze Injection) (11/22/21 20:39) Lidocaine 2% Injection 20 Ml (Xylocaine (11/22/21 21:12) Lidocaine 1% Inj 20 Ml (Xylocaine 1% Inj (11/22/21 21:15) Rx-Cephalexin Capsule (Rx-Keflex Capsule (11/22/21 21:47) Rx-Hydrocodone/Apap 5-325 Mg (Rx-Vicodin (11/22/21 22:00) Wound Dressing-Ed (11/22/21 21:47) Thumb Spika (11/22/21 21:47) Lidocaine 1% Inj 20 Ml (Xylocaine 1% Inj (11/22/21 22:45) Medications Given in ED Current Medications Medications Dose Ordered Sig/Cleo Route Start Time Stop Time Status Last Admin Dose Admin Acetaminophen/ Hydrocodone Bitart 1 ea Q4H PRN PO 11/22/21 22:00 11/22/21 22:53 DC 11/22/21 22:26 1 EA Fentanyl Citrate 50 mcg ONCE ONCE IVP 11/22/21 20:45 11/22/21 20:46 DC 11/22/21 20:44 50 MCG Lidocaine HCl 20 ml ONCE ONCE INJ 11/22/21 22:45 11/22/21 22:46 DC 11/22/21 21:20 20 ML Vital Signs/I&O 11/22/21 11/22/21 20:29 22:51 Temp 35.4 Pulse 96 89 Resp 24 20 B/P (MAP) 130/99 (109) 115/68 Pulse Ox 97 98 O2 Delivery Room Air Room Air Progress Progress Note : Progress Note GIVEN IV FLUIDS AND ANTIBIOTICS. Diagnostic Imaging Comments LEFT THUMB XRAY--PER RADIOLOGIST REPORT AT 2109 FINDINGS: No fracture or dislocation. Articular surfaces are normal. There is no foreign body. IMPRESSION: No bony involvement identified. Departure Impression Primary Impression: Laceration of left thumb with damage to nail Disposition: HOME, SELF-CARE Condition: Stable Departure-Patient Inst. Decision time for Depature: 21:48 Referrals: NO,LOCAL PHYSICIAN (PCP) Primary Care Physician [facility] Patient Instructions: Laceration Repair With Stitches (DC) Add. Discharge Instructions: LEAVE DRESSING IN PLACE FOR 24 HOURS, THEN CLEAN TWICE A DAY WITH ANTIBACTERIAL SOAP AND WATER ON A Q-TIP, AND APPLY FRESH DRESSING TWICE A DAY. OTHERWISE KEEP CLEAN AND DRY WEAR SPLINT AT ALL TIMES RETURN TO ER IN 2 DAYS FOR WOUND CHECK TYLENOL AND MOTRIN NEEDED FOR PAIN Scripts Cephalexin (Cephalexin) 500 Mg Tablet 500 MG PO QID, #40 TAB Prov: TONY PERRIN DO 11/22/21 TONY PERRIN DO Nov 22, 2021 20:38
[2021-11-22] MEDS ORDERED: fentaNYL INJ 100 MCG/2 ML AMP ONE (20:39)
[2021-11-22 20:41] LABS: BASOPHILS # (AUTO) 0.1 10^3/uL (0.0-0.1); BASOPHILS % (AUTO) 0 % (0-10); EOSINOPHILS # (AUTO) 0.1 10^3/uL (0.0-0.3); EOSINOPHILS % (AUTO) 1 % (0-10); HEMATOCRIT 43 % (40-54); HEMOGLOBIN 14.2 g/dL (13.3-17.7); LYMPHOCYTES # (AUTO) 4.6 10^3/uL (1.0-4.0); LYMPHOCYTES % (AUTO) 39 % (12-44); MEAN CORPUSCULAR HEMOGLOBIN 30 pg (25-34); MEAN CORPUSCULAR HGB CONC 33 g/dL (32-36); MEAN CORPUSCULAR VOLUME 89 fL (80-99); MEAN PLATELET VOLUME 10.1 fL (9.0-12.2); MONOCYTES # (AUTO) 0.6 10^3/uL (0.0-1.0); MONOCYTES % (AUTO) 5 % (0-12); NEUTROPHILS # (AUTO) 6.5 10^3/uL (1.8-7.8); NEUTROPHILS % (AUTO) 55 % (42-75); PLATELET COUNT 224 10^3/uL (130-400)
[2021-11-22] MEDS ORDERED: NS IV 1000 ML 1,000 ML IV SCH (20:45)
[2021-11-22] MEDS ORDERED: fentaNYL INJ 100 MCG/2 ML AMP IVP ONE (20:45)
[2021-11-22 21:00] LABS: CALCIUM 9.3 MG/DL (8.5-10.1); CREATININE SERUM 1.21 MG/DL (0.60-1.30); POTASSIUM 3.6 MMOL/L (3.6-5.0)
--- NOTE | 2021-11-22 21:08 | Diagnostic Imaging Report ---
INDICATION: Left thumb injury. COMPARISON: None. EXAMINATION: Three views of the left thumb and hand. FINDINGS: No fracture or dislocation. Articular surfaces are normal. There is no foreign body. IMPRESSION: No bony involvement identified. Dictated by: Dictated on workstation # [id number]
[2021-11-22] MEDS ORDERED: LIDOCAINE 2% 20 ML (XYLOCAINE) VIAL INJ STA (21:12)
[2021-11-22] MEDS ORDERED: LIDOCAINE 1% INJ 20 ML 20 ML VIAL ONE (21:15)
[2021-11-22] MEDS ORDERED: RX-CEPHALEXIN (KEFLEX) 250 MG CAP PPK#4 PO STA (21:47)
[2021-11-22] MEDS ORDERED: CEPH500T PO (21:50)
[2021-11-22] MEDS ORDERED: LIDOCAINE 1% INJ 20 ML 20 ML VIAL INJ ONE (22:45)
[2021-11-22 22:51] VITALS: BP 115/68
== END 2021-11-22 22:51 | disposition home or self-care (01) ==
LOC: EDUNIT# 20:25 → ER 20:26
DX: S61.112A Laceration without foreign body of left thumb with damage to nail, initial encounter (principal); W26.8XXA Contact with other sharp object(s), not elsewhere classified, initial encounter
CPT/HCPCS: 12014; 36415; 73140; 80048; 85025; 93041

== ENCOUNTER 2021-12-15 09:48 | Emergency (ER) | payer SELFPAY ==
[~2021-12-15] VITALS: Ht 180.3 cm; Wt 77.1 kg
[2021-12-15 10:15] VITALS: BP 128/75
[2021-12-15] MEDS ORDERED: CLIN-144 PO (10:29)
--- NOTE | 2021-12-15 10:30 | ED Integumentary General ---
General Chief Complaint: Skin/Wound Problems Stated Complaint: SUTURE REMOVAL Source: patient Exam Limitations: no limitations History of Present Illness Date Seen by Provider: Dec 15, 2021 Time Seen by Provider: 09:59 Initial Comments 26-year-old male with no significant past medical history coming in to get his sutures out of his left thumb. He came in several weeks ago. He was prescribed antibiotics and we took some of them. He is denying any pain, fever, or any other concerns. Allergies and Home Medications Allergies Coded Allergies: No Known Drug Allergies (Unverified , 02/01/13) Patient Home Medication List Home Medication List Reviewed: Yes Azithromycin (Azithromycin) 250 Mg Tablet, 250 MG PO UD Prescribed by: ANDRE YIP on 12/05/171855 Cephalexin (Cephalexin) 500 Mg Tablet, 500 MG PO TID Prescribed by: SHARDA HERBERT on 07/15/212129 Cephalexin (Cephalexin) 500 Mg Tablet, 500 MG PO QID Prescribed by: TONY PERRIN on 11/22/212149 Doxycycline Hyclate (Doxycycline Hyclate) 100 Mg Tablet, 100 MG PO BID Prescribed by: ROBER NESS on 05/21/191803 Promethazine HCl/Codeine (Prometh-Codein 6.25-10 mg/5 ml) 5 Ml Syrup, 5 ML PO Q6H PRN for CONGESTION Prescribed by: ANDRE YIP on 12/05/171855 Sulfamethoxazole/Trimethoprim (Bactrim Ds Tablet) 1 Each Tablet, 1 EACH PO BID Prescribed by: JAY ADDISON on 06/18/18 0159 Sulfamethoxazole/Trimethoprim (Bactrim Ds Tablet) 1 Each Tablet, 1 EACH PO BID Prescribed by: ROBER NESS on 05/21/191803 Sulfamethoxazole/Trimethoprim (Bactrim Ds Tablet) 1 Each Tablet, 1 EACH PO BID Prescribed by: DIMA VILLALTA on 09/03/202023 Review of Systems Review of Systems Constitutional: No chills, No fever EENTM: No blurred vision Respiratory: no symptoms reported Cardiovascular: no symptoms reported Gastrointestinal: no symptoms reported Genitourinary: no symptoms reported Musculoskeletal: no symptoms reported Skin: other (Wound healing) Psychiatric/Neurological: No Symptoms Reported Endocrine: No Symptoms Reported Hematologic/Lymphatic: No Symptoms Reported All Other Systems Reviewed Negative Unless Noted: Yes Past Pthbyiu-Hsgvpj-Jqsbhp Hx Patient Social History Tobacco Use?: Yes Substance use?: Unable to obtain Alcohol Use?: Unable to obtain Immunizations Up To Date Tetanus Booster (TDap): Less than 5yrs Past Medical History Surgeries: Yes ("TESTICULAR HERNIA") Orthopedic Respiratory: No Cardiac: No Neurological: No Reproductive Disorders: No Genitourinary: No Gastrointestinal: No Musculoskeletal: Yes (SPINAL STENOSIS) Chronic Back Pain Endocrine: No HEENT: No Cancer: No Psychosocial: No Integumentary: No Blood Disorders: No Family Medical History No Pertinent Family Hx Physical Exam Vital Signs Capillary Refill : General Appearance: WD/WN, no apparent distress HEENT: PERRL/EOMI, normal ENT inspection, pharynx normal Neck: non-tender, full range of motion, supple, normal inspection Cardiovascular: regular rate, rhythm, no edema, no murmur Respiratory: chest non-tender, lungs clear, normal breath sounds, no respiratory distress, no accessory muscle use Gastrointestinal: normal bowel sounds, non tender; No guarding, No rebound Back: normal inspection Extremities: normal range of motion, non-tender, no pedal edema, no calf t enderness, normal capillary refill Neurologic/Psychiatric: no motor/sensory deficits, alert, normal mood/affect Skin: normal color, warm/dry, other (Left thumb wound is healing, no redness or obvious cellulitis, there does appear to be a little pus coming out of the wound, but overall does not appear terribly infected) Lymphatic: no adenopathy Procedures/Interventions Suture Size: 3-0 Progress/Results/Core Measures Progress Progress Note : Progress Note 26-year-old male with above history coming in for suture removal. There does appear to be a mild infection that is starting. He did not finish his antibiotics that were taken. We will prescribe different antibiotics today. I believe he is stable for discharge with outpatient follow-up. He was sent home with strict return precautions peer Departure Impression Primary Impression: Visit for suture removal Additional Impression: Finger infection Disposition: HOME, SELF-CARE Condition: Stable Departure-Patient Inst. Decision time for Depature: 10:28 Referrals: NO,LOCAL PHYSICIAN (PCP) Primary Care Physician Patient Instructions: SUTURE REMOVAL-UNCOMPLICATED, Laceration Infection ED Add. Discharge Instructions: Please take the new antibiotics (clindamycin) until they are finished. If you have any redness spreading up your arm, fever, or the pus is worsening after the first 24 to 48 hours then please come back to the ER. Scripts Clindamycin HCl (Clindamycin HCl) 300 Mg Capsule 300 MG PO QID for 7 Days, #28 CAP Prov: LILIAN LOU MD 12/15/21 Work/School Note: Work Release Form Date Seen in the Emergency Department: Dec 15, 2021 Return to Work: Dec 16, 2021 Restrictions: No Restrictions LILIAN LOU MD Dec 15, 2021 10:29
== END 2021-12-15 10:41 | disposition home or self-care (01) ==
LOC: EDUNIT# 09:48 → ER 09:50
DX: Z48.02 Encounter for removal of sutures (principal); Z72.0 Tobacco use
CPT/HCPCS: 99282